=== PATIENT | male | born 1950 | race Caucasian/White ===

== ENCOUNTER 2023-11-10 10:17 | Emergency (ER) | payer MEDICARE, BC, SELFPAY ==
[2023-11-10 10:20] VITALS: BP 126/73; PULSE 72; RESP 22; TEMP 37.2; O2SAT 98
--- NOTE | 2023-11-10 10:50 | ED.GENADUL_ITS ---
Discharge Plan Disposition Patient Disposition: Home Discharge Details Clinical Impression: Erythematous rash Primary Care Provider: Audrey Avilez ED Provider: Linwood Lopez Home Meds and New Rx's Prescriptions: New cetirizine 10 mg capsule 10 mg PO DAILY PRNQty: 14 0RF prednisone 50 mg tablet 50 mg PO DAILY Qty: 4 0RF Rx Instructions: Please begin taking tomorrow as you have received steroids in the emergency department Discharge Instructions Instructions: Skin Rash ED Additional Instructions: You are seen in the emergency department for your rash. This may be related to your chemotherapy. Please discontinue using topical creams. You received steroids in the emergency department. If your rash returns later this week please take the second course of steroids. Please return immediately to the emergency department if you develop fevers any difficulty breathing any rash in your mouth or if you cannot eat or drink. Otherwise please follow-up with your primary care provider. Discharge Data Discharge Date/Time-TO BE ENTERED AT DEPARTURE: 11/10/23 11:26 HPI General Date/Time Provider Initiated Documentation: 11/10/23 10:30 . HPI Narrative: MDM This is an overall very well-appearing normothermic and not tachycardic 73-year-old male with blanching erythematous rash and history of gemcitabine for which patient will receive additional course of steroids given transient improvement following steroids in the past month. No pain out of proportion to suggest necrotizing soft tissue infection. No satellite lesions to suggest candidiasis. No hand or foot involvement to suggest syphilis. No recent tick bites to suggest Lyme arthritis. No petechiae to suggest ITP nor meningitis. No fevers to suggest toxic shock syndrome. No fevers to suggest dress syndrome. No shortness of breath tongue swelling no intraoral lesion to suggest increased risk for anaphylaxis no indication for epinephrine. No vesicles to suggest zoster. No bullae to suggest Bejarano-Eliceo syndrome. No intraoral involvement to suggest TEN. No exposure to poison oak or poison sumac to suggest ursodiol. It certainly possible that the patient could have a secondary hypersensitivity reaction given that he has been using topical steroids. I have advised him to discontinue any topical to medications. Rash is erythematous but does not appear consistent with cellulitis. No signs of necrosis which can be a known complication of gemcitabine. Will treat with cetirizine given pruritus and dexamethasone. I also alerted the patient that short course of prednisone that he can fill prior to traveling to [place] and then I advised him to use if his rash returned in the next 6 to 7 days. We did talk that there are significant side effects of steroids including GI bleeds psychosis and adrenal suppression. I advised patient to return to the emergency department if he developed any difficulty breathing tongue swelling fevers or any worsening of his rash. He understood his return indications and was discharged with an empiric trial of expectant outpatient management. HPI This is a 73-year-old male with history of bladder cancer on outpatient gemcitabine given several weeks ago traveling from [place] in the emergency department now with a rash. Patient reports that his rash started approximately 1 month ago just after taking .gemcitabine he says that he was treated with steroids and received acyclovir as there was concern for possible zoster. He reports that the steroids transiently improved his symptoms. He received a second course of steroids which he felt improved his symptoms. He is traveling through [place] over the next several days and not due home in [place] for approximately 2 more weeks. He is concerned about his rash. He has had no intraoral involvement. No shortness of breath. No tongue swelling. No fevers. No nausea vomiting chest pain or shortness of breath. He reports that the rash is occasionally itching. Exam General: Well-appearing in no acute distress speaking in complete sentences. Head: Normocephalic, atraumatic. Eye: Extraocular eye movements intact. No conjunctival injection. No scleral icterus. Ear, nose, mouth, throat: Grossly normal inspection. Normal voice, handling secretions normally. Neck: Trachea midline. Cardiovascular: Well-perfused distal extremities. Respiratory: Nonlabored respiration. Gastrointestinal: Nondistended abdomen. Musculoskeletal: No edema. Moving all 4 extremities spontaneously. Skin: There is a confluent erythematous patch over the patient's upper chest and upper back. Patches of blanching. It is not warm to the touch. No vesicles. No bullae. No satellite lesions. Neurologic: Alert and appropriate, no apparent acute deficits. Psychiatric: Mood and manner are appropriate. Grooming and personal hygiene are appropriate. Related Data Home Medications ?Medication ?Instructions ?Recorded ?Confirmed cetirizine 10 mg capsule 10 mg PO DAILY PRN #14 caps 11/10/23 prednisone 50 mg tablet 50 mg PO DAILY #4 tabs 11/10/23 Previous Rx's ?Medication ?Instructions ?Recorded cetirizine 10 mg capsule 10 mg PO DAILY PRN #14 caps 11/10/23 prednisone 50 mg tablet 50 mg PO DAILY #4 tabs 11/10/23 General Stated Complaint: RashLesion ELMA: 3 Course Vital Signs Vital signs: Vital Signs Temperature 37.2 C 11/10/23 10:20 Pulse 72 11/10/23 10:20 Respiratory Rate 22 11/10/23 10:20 Blood Pressure 126/73 11/10/23 10:20 Pulse Oximetry 98 11/10/23 10:20 Temperature 37.2 C 11/10/23 10:20 Temperature Source Oral 11/10/23 10:20 Pulse 72 11/10/23 10:20 Respiratory Rate 22 11/10/23 10:20 Blood Pressure 126/73 11/10/23 10:20 Blood Pressure Position Sitting 11/10/23 10:20 Pulse Oximetry 98 11/10/23 10:20 Oxygen Delivery Method Room Air 11/10/23 10:20 Oxygen Flow Rate 0 11/10/23 10:20 Pain Level 0 11/10/23 10:20 Medical Decision Making Quality:SDOH Health Related Social Needs: No Data to Display PFSH All Active Problems (Updated 11/10/23 @ 10:54 by Linwood Lopez MD) Erythematous rash (Acute) Social History Smoking/Tobacco Use Status: Never Smoking risk assessment performed?: Yes Drug use: Never Substance use type: does not use Housing: other Do you feel safe at home: Yes Do you feel safe in your relationship?: Yes
[2023-11-10 11:25] VITALS: BP 126/73; PULSE 72; RESP 22; TEMP 37.2; O2SAT 98
[2023-11-10] MEDS: Cetirizine 10 MG TAB PO (11:25)
[2023-11-10] MEDS: Dexamethasone 4 MG TAB 8 MG PO (11:25)
== END 2023-11-10 11:26 | disposition home or self-care (01) ==
PROVIDERS: Emergency Provider Emergency Medicine; PCP Physician Assistant
DX: R21 Rash and other nonspecific skin eruption (principal); Z92.21 Personal history of antineoplastic chemotherapy
CPT/HCPCS: 99283; J8540